=== PATIENT | female | born 1985 | race Two or more races ===

== ENCOUNTER 2025-07-18 19:33 | Inpatient (IN) | payer MEDICAID ==
[~2025-07-18] VITALS: Ht 154.9 cm; Wt 44.0 kg
[~2025-07-18 19:33] MED LIST: ATOR10TA PO; CALC320T8 PO; CHOL400D7 PO; CYAN250010 PO; DEME300T8 PO; HYDR5TAB13 MT; LACO200T4 PO; LEVE1000 MT; LEVE500T19 PO; LEVO100T9 PO; LORA-250 PO; MAG-4 PO; MAGN400C PO; MIDO10TA3 MT; OMEP-265 PO; QUET25TA36 PO; SODI100047 PO; SUCR1TAB30 PO
[2025-07-18 19:37] VITALS: O2SAT 100
[2025-07-18] MEDS: ONDANSETRON HCL 4MG/2ML INJ IV ONE (20:00)
[2025-07-18 23:00] LABS: BASOPHILS % 1.0 % (0.0-2.0); EOSINOPHILS % 2.5 % (0.0-5.0); HEMATOCRIT. 32.2 % (36.0-48.0); HEMOGLOBIN. 10.5 g/dL (12.0-16.0); LYMPHOCYTES % 28.2 % (20.0-50.0); MEAN PLATELET VOLUME 7.1 fl (7.4-10.4); MONOCYTES % 10.0 % (2.0-8.0); NEUTROPHILS % 58.3 % (40.0-76.0); PLATELET 176 x1000/uL (130-400); RED BLOOD CELL COUNT 3.33 mill/uL (4.2-5.4); RED CELL DISTRIBUTION WIDTH 13.9 % (11.6-14.6)
[2025-07-18] MEDS: SODIUM CHLORIDE 0.9% 1,000 ML IV ONE (23:00)
[2025-07-18 23:16] LABS: CREATININE 0.9 mg/dL (0.6-1.0)
[2025-07-18 23:17] LABS: TROPONIN I HIGH SENSITIVITY < 4 ng/L (3.0-34); UREA NITROGEN BLOOD 21 mg/dL (9-23)
[2025-07-18 23:18] LABS: ASPARTATE AMINOTRANSFERASE 10 IU/L (<34)
[2025-07-18 23:19] LABS: BILIRUBIN DIRECT < 0.1 mg/dL (<=3.0); BILIRUBIN TOTAL 0.2 mg/dL (0.1-1.0); PROTEIN TOTAL 7.2 g/dL (6.0-8.3)
[2025-07-18 23:27] LABS: HCG SCREEN NEGATIVE
[2025-07-19] MEDS: ONDANSETRON HCL 4MG/2ML INJ IV NR (02:19)
[2025-07-19 05:04] VITALS: BP 119/67; PULSE 64; RESP 18; TEMP 36.3068
[2025-07-19 06:16] LABS: INFLUENZA TYPE A Presumptive Negative (Pres. Neg.)
[2025-07-19 06:17] LABS: INFLUENZA TYPE B Presumptive Negative (Pres. Neg.)
[2025-07-19 06:18] LABS: RESPIRATORY SYNCYTIAL VIRUS Not Detected (Not Detectd)
[2025-07-19] MEDS ORDERED: CLONIDINE 0.1MG TABLET PO PRN (07:30)
[2025-07-19] MEDS ORDERED: MORPHINE SULFATE 2 MG/ML INJ (NOT FOR IM USE) IV PRN (07:30)
[2025-07-19] MEDS ORDERED: ZOLPIDEM TARTRATE 5MG TABLET PO PRN (07:30)
[2025-07-19] MEDS ORDERED: MAGNESIUM/ALUMINUM HYDROXIDE/SIMETHICONE 30ML UDC PO PRN (07:30)
[2025-07-19] MEDS ORDERED: ACETAMINOPHEN 325MG TABLET PO PRN (07:30)
[2025-07-19] MEDS ORDERED: ONDANSETRON HCL 4MG/2ML INJ IV PRN (07:30)
[2025-07-19] MEDS ORDERED: HYDROCODONE/ACETAMINOPHEN 5/325MG TABLET PO PRN (07:30)
[2025-07-19 08:00] VITALS: BP 124/78; PULSE 76; RESP 18; TEMP 36.8; O2SAT 99
[2025-07-19] MEDS ORDERED: NALOXONE HCL 0.4MG/ML VIAL IV PRN (08:00)
[2025-07-19] MEDS: PANTOPRAZOLE SODIUM 40 MG/VIAL IV SCH (08:44)
[2025-07-19] MEDS: CEFTRIAXONE 1GM/50ML 50 ML IV SCH (09:05)
[2025-07-19] MEDS: ENOXAPARIN 40MG/0.4ML SYR SUBCUT SCH (09:19)
[2025-07-19] MEDS: SODIUM CHLORIDE 0.9% 1,000 ML IV SCH (09:20)
[2025-07-19 12:00] VITALS: BP 107/61; PULSE 68; RESP 18; TEMP 36.9; O2SAT 85
[2025-07-19 20:00] VITALS: BP 118/75; PULSE 82; RESP 18; TEMP 36.5; O2SAT 100
[2025-07-20] VITALS: BP 96/57; PULSE 79; RESP 18; TEMP 36.6; O2SAT 100
[2025-07-20 04:00] VITALS: BP 108/70; PULSE 74; RESP 18; TEMP 36.2; O2SAT 97
[2025-07-20 06:24] LABS: BASOPHILS % 1.1 % (0.0-2.0); EOSINOPHILS % 3.9 % (0.0-5.0); HEMATOCRIT. 29.7 % (36.0-48.0); HEMOGLOBIN. 9.8 g/dL (12.0-16.0); LYMPHOCYTES % 45.8 % (20.0-50.0); MEAN PLATELET VOLUME 7.9 fl (7.4-10.4); MONOCYTES % 11.1 % (2.0-8.0); NEUTROPHILS % 38.1 % (40.0-76.0); PLATELET 152 x1000/uL (130-400); RED BLOOD CELL COUNT 3.07 mill/uL (4.2-5.4); RED CELL DISTRIBUTION WIDTH 13.6 % (11.6-14.6)
[2025-07-20 07:24] LABS: CREATININE 0.7 mg/dL (0.6-1.0); UREA NITROGEN BLOOD 12 mg/dL (9-23)
[2025-07-20 08:00] VITALS: BP 125/78; PULSE 73; RESP 16; TEMP 36.4; O2SAT 100
[2025-07-20] MEDS: HYDROCORTISONE 10MG TABLET PO SCH ×2 (09:45→20:40)
[2025-07-20] MEDS ORDERED: MAGNESIUM/ALUMINUM HYDROXIDE/SIMETHICONE 30ML UDC PO SCH (09:45)
[2025-07-20] MEDS ORDERED: LORAZEPAM 1MG TABLET PO PRN (09:45)
[2025-07-20] MEDS ORDERED: SODIUM CHLORIDE 1000MG TABLET PO SCH (11:00)
[2025-07-20] MEDS: SUCRALFATE 1G TABLET PO SCH (11:39)
[2025-07-20 12:00] VITALS: BP 110/77; PULSE 74; RESP 16; TEMP 36.3; O2SAT 100
[2025-07-20] MEDS: MIDODRINE HCL 5MG TABLET PO SCH (12:52)
[2025-07-20] MEDS: DEMECLOCYCLINE HCL 300MG TABLET PO SCH (13:56)
[2025-07-20 14:34] LABS: CLARITY URINE CLEAR (CLEAR); COLOR URINE YELLOW (YELLOW)
[2025-07-20] MEDS: QUETIAPINE FUMARATE 25MG TABLET PO SCH (14:34)
[2025-07-20 14:35] LABS: GLUCOSE URINE NEGATIVE (NEGATIVE); KETONES URINE NEGATIVE (NEGATIVE); LEUKOCYTE ESTERASE URINE 2+ (NEGATIVE); NITRITE URINE NEGATIVE (NEGATIVE); OCCULT BLOOD URINE TRACE (NEGATIVE); PH URINE 5.5 (4.5-8.0); PROTEIN URINE NEGATIVE (NEGATIVE); SPECIFIC GRAVITY URINE 1.013 (1.005-1.030); UROBILINOGEN URINE 0.2 E.U./dL (0.2-1.0)
[2025-07-20 14:48] LABS: *AMPHETAMINES SCREEN URINE NEGATIVE (NEGATIVE); *BARBITURATES SCREEN URINE NEGATIVE (NEGATIVE); *BENZODIAZEPINES SCREEN URINE NEGATIVE (NEGATIVE); *COCAINE SCREEN URINE NEGATIVE (NEGATIVE); CANNABINOID URINE SCREEN NEGATIVE (NEGATIVE); ECSTASY MDMA SCREEN URINE NEGATIVE (NEGATIVE); METHADONE URINE SCREEN NEGATIVE (NEGATIVE); OPIATES URINE SCREEN NEGATIVE (NEGATIVE); PHENCYCLIDINE URINE SCREEN NEGATIVE (NEGATIVE)
[2025-07-20 16:00] VITALS: BP 124/83; PULSE 75; RESP 16; TEMP 36.2; O2SAT 100
[2025-07-20 16:47] LABS: BACTERIA URINE TRACE; SQUAMOUS EPITHELIAL CELL URINE FEW /lpf (RARE/1+)
[2025-07-20 20:00] VITALS: BP 103/53; PULSE 75; RESP 18; TEMP 36.6; O2SAT 100
[2025-07-20] MEDS: LEVETIRACETAM 500MG TABLET PO SCH (20:39)
[2025-07-20] MEDS: ATORVASTATIN CALCIUM 10MG TABLET PO SCH (20:39)
[2025-07-21] VITALS: BP 105/68; PULSE 75; RESP 14; TEMP 36.2; O2SAT 95
[2025-07-21 04:00] VITALS: BP 118/82; PULSE 70; RESP 16; TEMP 36.1; O2SAT 99
[2025-07-21] MEDS: LEVOTHYROXINE SODIUM 100MCG TABLET PO SCH (07:04)
[2025-07-21 08:00] VITALS: BP 120/75; PULSE 64; RESP 15; TEMP 36.6; O2SAT 96
[2025-07-21] MEDS ORDERED: SODIUM CHLORIDE 1000MG TABLET PO SCH (09:00)
[2025-07-21 10:27] LABS: BASOPHILS % 1.1 % (0.0-2.0); EOSINOPHILS % 3.4 % (0.0-5.0); HEMATOCRIT. 32.4 % (36.0-48.0); HEMOGLOBIN. 10.7 g/dL (12.0-16.0); LYMPHOCYTES % 27.8 % (20.0-50.0); MEAN PLATELET VOLUME 7.0 fl (7.4-10.4); MONOCYTES % 10.3 % (2.0-8.0); NEUTROPHILS % 57.4 % (40.0-76.0); PLATELET 176 x1000/uL (130-400); RED BLOOD CELL COUNT 3.40 mill/uL (4.2-5.4); RED CELL DISTRIBUTION WIDTH 13.6 % (11.6-14.6)
[2025-07-21 10:44] LABS: CREATININE 0.6 mg/dL (0.6-1.0); UREA NITROGEN BLOOD 8 mg/dL (9-23)
[2025-07-21 12:00] VITALS: BP 122/78; PULSE 60; RESP 16; O2SAT 98
[2025-07-21 15:13] VITALS: BP 124/76; PULSE 62; RESP 16; TEMP 97.8
[2025-07-21 16:00] VITALS: BP 95/65; PULSE 76; RESP 17; TEMP 36.5; O2SAT 96
== END 2025-07-21 16:45 | disposition home or self-care (01) | DRG 720 ==
LOC: ER 19:33 → 6WST 23:48 → EDBEDREQTM 23:56 → EDBEDREQ 23:56 → ENRESERV 07-19 01:06
PROVIDERS: ADMIT Internal Medicine; ATTEND Internal Medicine
DX: A41.9 Sepsis, unspecified organism (principal); R57.9 Shock, unspecified; G93.49 Other encephalopathy; L89.613 Pressure ulcer of right heel, stage 3; E86.1 Hypovolemia; E03.9 Hypothyroidism, unspecified; G40.909 Epilepsy, unspecified, not intractable, without status epilepticus; F03.90 Unspecified dementia, unspecified severity, without behavioral disturbance, psychotic disturbance, mood disturbance, and anxiety; Z20.822 Contact with and (suspected) exposure to COVID-19; E86.9 Volume depletion, unspecified; E27.40 Unspecified adrenocortical insufficiency; Z86.73 Personal history of transient ischemic attack (TIA), and cerebral infarction without residual deficits; Z79.899 Other long term (current) drug therapy
CPT/HCPCS: 36415; 71045; 80048; 80076; 80305; 80339; 81003; 82550; 83735; 83880; 84443; 84484; 84703; 85025; 87420; 87426; 87804; 93970; 99285; J0696; J1650; J2405; J2470; J7030

== ENCOUNTER 2025-08-14 15:21 | Inpatient (IN) | payer BC, MEDICAID ==
[~2025-08-14] VITALS: Ht 160 cm; Wt 43.5 kg
[~2025-08-14 15:21] MED LIST changes: -LEVE500T19 PO; -MAG-4 PO; -MAGN400C PO; -OMEP-265 PO
[2025-08-14 15:37] VITALS: O2SAT 98
[2025-08-14 16:23] LABS: BASOPHILS % 1.1 % (0.0-2.0); EOSINOPHILS % 2.3 % (0.0-5.0); HEMATOCRIT. 33.4 % (36.0-48.0); HEMOGLOBIN. 10.9 g/dL (12.0-16.0); LYMPHOCYTES % 40.1 % (20.0-50.0); MEAN PLATELET VOLUME 6.8 fl (7.4-10.4); MONOCYTES % 11.4 % (2.0-8.0); NEUTROPHILS % 45.1 % (40.0-76.0); PLATELET 238 x1000/uL (130-400); RED BLOOD CELL COUNT 3.56 mill/uL (4.2-5.4); RED CELL DISTRIBUTION WIDTH 13.7 % (11.6-14.6)
[2025-08-14] MEDS: SODIUM CHLORIDE 0.9% (SEPSIS BOLUS) IV ONE (16:29)
[2025-08-14] MEDS: PIPERACILLIN/TAZO 3.375G/50ML 50 ML IV ONE (16:29)
[2025-08-14] MEDS: CIPROFLOXACIN 0.3% OPHTH SOLN 2.5ML RIGHTEYE SCH (16:34)
[2025-08-14 16:39] LABS: CREATININE 0.8 mg/dL (0.6-1.0); INR 1.0; PROTEIN TOTAL 7.4 g/dL (6.0-8.3); UREA NITROGEN BLOOD 18 mg/dL (9-23)
[2025-08-14 16:40] LABS: TROPONIN I HIGH SENSITIVITY < 4 ng/L (3.0-34)
[2025-08-14 16:41] LABS: ASPARTATE AMINOTRANSFERASE 11 IU/L (<34); BILIRUBIN DIRECT < 0.1 mg/dL (<=3.0); BILIRUBIN TOTAL 0.3 mg/dL (0.1-1.0)
[2025-08-14 16:46] LABS: HCG SCREEN NEGATIVE
[2025-08-14] MEDS: VANCOMYCIN 1G PREMIX 200 ML IV ONE (17:28)
[2025-08-14] MEDS ORDERED: CLONIDINE 0.1MG TABLET PO PRN (19:30)
[2025-08-14] MEDS ORDERED: ONDANSETRON HCL 4MG/2ML INJ IV PRN (19:30)
[2025-08-14] MEDS ORDERED: HYDROCODONE/ACETAMINOPHEN 5/325MG TABLET PO PRN (19:30)
[2025-08-14] MEDS ORDERED: ACETAMINOPHEN 325MG TABLET PO PRN (19:30)
[2025-08-14] MEDS ORDERED: MAGNESIUM/ALUMINUM HYDROXIDE/SIMETHICONE 30ML UDC PO PRN (19:30)
[2025-08-14 20:24] LABS: GLUCOSE URINE NEGATIVE (NEGATIVE); KETONES URINE NEGATIVE (NEGATIVE); LEUKOCYTE ESTERASE URINE 2+ (NEGATIVE); NITRITE URINE NEGATIVE (NEGATIVE); OCCULT BLOOD URINE NEGATIVE (NEGATIVE); PH URINE 8.0 (4.5-8.0); PROTEIN URINE NEGATIVE (NEGATIVE); SPECIFIC GRAVITY URINE 1.036 (1.005-1.030); UROBILINOGEN URINE 0.2 E.U./dL (0.2-1.0)
[2025-08-14 20:28] LABS: *AMPHETAMINES SCREEN URINE NEGATIVE (NEGATIVE); *BARBITURATES SCREEN URINE NEGATIVE (NEGATIVE); *BENZODIAZEPINES SCREEN URINE NEGATIVE (NEGATIVE); *COCAINE SCREEN URINE NEGATIVE (NEGATIVE); METHADONE URINE SCREEN NEGATIVE (NEGATIVE); OPIATES URINE SCREEN NEGATIVE (NEGATIVE)
[2025-08-14 20:29] LABS: CANNABINOID URINE SCREEN NEGATIVE (NEGATIVE); ECSTASY MDMA SCREEN URINE NEGATIVE (NEGATIVE); PHENCYCLIDINE URINE SCREEN NEGATIVE (NEGATIVE)
[2025-08-14 20:50] LABS: CLARITY URINE SL HAZY (CLEAR); COLOR URINE STRAW (YELLOW)
[2025-08-14 20:53] LABS: WBC URINE 15-25 /hpf (0-2)
[2025-08-14 20:54] LABS: BACTERIA URINE TRACE; RBC URINE NONE SEEN /hpf (0-2); SQUAMOUS EPITHELIAL CELL URINE 1+ /lpf (RARE/1+)
[2025-08-14] MEDS: ATORVASTATIN CALCIUM 40MG TABLET PO SCH (21:00)
[2025-08-14] MEDS: ENOXAPARIN 40MG/0.4ML SYR SUBCUT SCH (21:00)
[2025-08-14] MEDS: CIPROFLOXACIN 0.3% OPHTH SOLN 2.5ML BOTHEYE SCH (21:00)
[2025-08-14 23:00] VITALS: BP 127/84; PULSE 71; RESP 20; TEMP 37.0296
[2025-08-14] MEDS ORDERED: LORAZEPAM 1MG TABLET PO PRN ×2 (23:15)
[2025-08-14] MEDS: QUETIAPINE FUMARATE 25MG TABLET PO SCH (23:15)
[2025-08-15] VITALS: BP 138/76; PULSE 76; RESP 19; TEMP 36.4; O2SAT 98
[2025-08-15 04:00] VITALS: BP 120/76; PULSE 68; RESP 18; TEMP 36.2; O2SAT 100
[2025-08-15] MEDS: SODIUM CHLORIDE 0.9% 1,000 ML IV SCH (04:18)
[2025-08-15] MEDS: LEVOTHYROXINE SODIUM 100MCG TABLET PO SCH (06:38)
[2025-08-15 08:22] VITALS: BP 114/77; PULSE 72; RESP 18; TEMP 36.5; O2SAT 100
[2025-08-15] MEDS: PANTOPRAZOLE SODIUM 40 MG/VIAL IV SCH (09:00)
[2025-08-15] MEDS: SODIUM CHLORIDE 1000MG TABLET PO SCH (09:31)
[2025-08-15] MEDS: LEVETIRACETAM 500MG/5ML CUP PO SCH (09:31)
[2025-08-15] MEDS: ASPIRIN 81MG EC TABLET PO SCH (09:31)
[2025-08-15] MEDS: SUCRALFATE 1G TABLET PO SCH (09:31)
[2025-08-15] MEDS: CLOPIDOGREL 75MG TABLET PO SCH (09:31)
[2025-08-15] MEDS ORDERED: MEDICATION NOT ON FORMULARY EA (Midodrine Hcl 1 TAB) MT PRN (10:00)
[2025-08-15 12:03] VITALS: BP 113/71; PULSE 74; RESP 18; TEMP 36.1; O2SAT 100
[2025-08-15] MEDS ORDERED: DEMECLOCYCLINE HCL 300MG TABLET PO SCH (14:00)
[2025-08-15 16:13] VITALS: BP 101/68; PULSE 75; RESP 19; TEMP 35.7; O2SAT 100
[2025-08-15] MEDS: ASPIRIN 81MG TABLET PO ONE (19:16)
[2025-08-15] MEDS: IOHEXOL-350 100 ML BOTTLE ONE (19:17)
[2025-08-15 20:00] VITALS: BP 123/72; PULSE 73; RESP 18; TEMP 36.7; O2SAT 100
[2025-08-15] MEDS ORDERED: ATORVASTATIN CALCIUM 10MG TABLET PO SCH (21:00)
[2025-08-15] MEDS ORDERED: MEDICATION NOT ON FORMULARY EA (Levetiracetam (Keppra) 1 TAB) MT SCH (21:00)
[2025-08-15] MEDS ORDERED: DONE10TA43 PO (22:50)
[2025-08-15] MEDS ORDERED: MEMA7CAP PO (22:50)
[2025-08-15] MEDS ORDERED: ZINC220C6 PO (22:50)
[2025-08-15] MEDS ORDERED: PRED5DRO22 RIGHTEYE (22:50)
[2025-08-15] MEDS ORDERED: ERGO50CA PO (22:50)
[2025-08-15] MEDS ORDERED: CYCL30DR EACHEYE (22:50)
[2025-08-15] MEDS ORDERED: OMEP40CA20 PO (22:50)
[2025-08-15] MEDS ORDERED: CARB15DR2 EACHEYE (22:50)
[2025-08-15] MEDS ORDERED: LEVO25TA7 PO (22:50)
[2025-08-15] MEDS ORDERED: CIPR2.5D20 RIGHTEYE (22:50)
[2025-08-15] MEDS ORDERED: MAG355OR43 PO (22:50)
[2025-08-15] MEDS ORDERED: MEGE400O40 PO (22:50)
[2025-08-15] MEDS ORDERED: KEPP500 PO (22:50)
[2025-08-15] MEDS ORDERED: CHLO3800 TP (22:50)
[2025-08-15] MEDS ORDERED: MAGN200T5 PO (22:50)
[2025-08-15] MEDS ORDERED: MIDODRINE HCL 5MG TABLET PO PRN (23:00)
[2025-08-16] MEDS ORDERED: POLY17PO43 PO (00:11)
[2025-08-16] MEDS ORDERED: MUPI15CR11 TP (00:11)
[2025-08-16] MEDS ORDERED: FERR325T6 PO (00:11)
[2025-08-16] MEDS ORDERED: CARB15DR EACHEYE (00:11)
[2025-08-16] MEDS ORDERED: CALC-1050 PO (00:11)
[2025-08-16] MEDS ORDERED: SILV50CR31 TP (00:11)
[2025-08-16] MEDS ORDERED: ACET-2708 PO (00:11)
[2025-08-16] MEDS ORDERED: DOCU-405 PO (00:11)
[2025-08-16] MEDS ORDERED: BIOT5000 PO (00:11)
[2025-08-16 04:00] VITALS: BP 131/83; PULSE 69; RESP 18; TEMP 37.1; O2SAT 100
[2025-08-16 07:52] LABS: BASOPHILS % 1.1 % (0.0-2.0); EOSINOPHILS % 3.4 % (0.0-5.0); HEMATOCRIT. 33.5 % (36.0-48.0); HEMOGLOBIN. 11.3 g/dL (12.0-16.0); LYMPHOCYTES % 40.8 % (20.0-50.0); MEAN PLATELET VOLUME 6.3 fl (7.4-10.4); MONOCYTES % 10.3 % (2.0-8.0); NEUTROPHILS % 44.4 % (40.0-76.0); PLATELET 226 x1000/uL (130-400); RED BLOOD CELL COUNT 3.55 mill/uL (4.2-5.4); RED CELL DISTRIBUTION WIDTH 13.3 % (11.6-14.6)
[2025-08-16 08:00] VITALS: BP 119/78; PULSE 67; RESP 20; TEMP 36.7; O2SAT 95
[2025-08-16 08:03] LABS: CREATININE 0.7 mg/dL (0.6-1.0)
[2025-08-16 08:05] LABS: UREA NITROGEN BLOOD 8 mg/dL (9-23)
[2025-08-16] MEDS: HYDROCORTISONE 10MG TABLET PO SCH ×2 (08:46→16:54)
[2025-08-16 12:00] VITALS: BP 139/80; PULSE 67; RESP 18; TEMP 36.7; O2SAT 97
[2025-08-16 16:00] VITALS: BP 120/79; PULSE 80; RESP 19; TEMP 36.5; O2SAT 97
[2025-08-16 18:00] VITALS: BP 120/79; PULSE 80; RESP 18; TEMP 36.5; O2SAT 97
[2025-08-16 20:00] VITALS: BP 137/83; PULSE 76; RESP 19; TEMP 36.4; O2SAT 97
[2025-08-16] MEDS ORDERED: NALOXONE HCL 0.4MG/ML VIAL IV PRN (20:00)
[2025-08-17] VITALS: BP 124/86; PULSE 71; RESP 18; TEMP 36.4; O2SAT 98
[2025-08-17 04:00] VITALS: BP 121/78; PULSE 86; RESP 17; TEMP 36.4; O2SAT 98
[2025-08-17 08:00] VITALS: BP 133/83; PULSE 64; RESP 18; TEMP 36.4; O2SAT 96
[2025-08-17 12:00] VITALS: BP 131/69; PULSE 93; RESP 18; TEMP 36.3; O2SAT 99
[2025-08-17] MEDS ORDERED: LORAZEPAM 2MG/ML UD SYRINGE IV SCH (13:45)
[2025-08-17 16:00] VITALS: BP 123/68; PULSE 78; RESP 16; TEMP 36.5; O2SAT 94
[2025-08-17] MEDS: ENOXAPARIN 30MG/0.3ML SYR SUBCUT SCH (19:21)
[2025-08-17 20:00] VITALS: BP 93/61; PULSE 78; RESP 16; TEMP 36.3; O2SAT 98
[2025-08-17] MEDS: ZOLPIDEM TARTRATE 5MG TABLET PO PRN (21:06)
[2025-08-18] VITALS: BP 102/65; PULSE 79; RESP 19; TEMP 35.7
[2025-08-18 04:00] VITALS: BP 116/77; PULSE 73; RESP 16; TEMP 36.6; O2SAT 97
[2025-08-18 06:06] LABS: CREATININE 0.6 mg/dL (0.6-1.0); UREA NITROGEN BLOOD 6 mg/dL (9-23)
[2025-08-18 08:00] VITALS: BP 119/76; PULSE 76; RESP 16; TEMP 36.4; O2SAT 100
[2025-08-18 11:39] VITALS: BP 119/76; PULSE 76; RESP 16; TEMP 97.6
== END 2025-08-18 17:40 | disposition home or self-care (01) | DRG 58 ==
LOC: ER 15:21 → EDBEDREQ 20:23 → EDBEDREQTM 20:23 → 7WST 22:11
PROVIDERS: ADMIT Internal Medicine; ATTEND Internal Medicine
DX: G93.89 Other specified disorders of brain (principal); L89.514 Pressure ulcer of right ankle, stage 4; L89.610 Pressure ulcer of right heel, unstageable; L89.894 Pressure ulcer of other site, stage 4; H10.9 Unspecified conjunctivitis; G80.9 Cerebral palsy, unspecified; G40.909 Epilepsy, unspecified, not intractable, without status epilepticus; E03.9 Hypothyroidism, unspecified; G31.9 Degenerative disease of nervous system, unspecified; F32.A Depression, unspecified; R53.1 Weakness; H02.23 Paralytic lagophthalmos; R41.82 Altered mental status, unspecified; R32 Unspecified urinary incontinence; L30.9 Dermatitis, unspecified; Z79.82 Long term (current) use of aspirin; Z85.841 Personal history of malignant neoplasm of brain; Z86.73 Personal history of transient ischemic attack (TIA), and cerebral infarction without residual deficits; Z98.2 Presence of cerebrospinal fluid drainage device; Z79.899 Other long term (current) drug therapy
CPT/HCPCS: 36415; 70496; 70498; 71045; 80048; 80076; 80305; 80339; 81003; 83605; 83880; 84484; 84703; 85025; 92610; 93005; 97162; 99291; J1650; J2470; J2543; J3373; J7030; Q9967